=== PATIENT | female | born 1990 | race Caucasian/White ===

== ENCOUNTER 2021-02-18 23:32 | Emergency (ER) | payer OTHER ==
[~2021-02-18] VITALS: Ht 157.5 cm; Wt 50.0 kg
[2021-02-19 00:13] VITALS: BP 146/95
[2021-02-19] MEDS ORDERED: epiNEPHrine 1 mg/ml inj IM STA (00:20)
[2021-02-19] MEDS ORDERED: famotidine 20mg tablet PO ONE (00:25)
[2021-02-19] MEDS ORDERED: PANT20TA18 PO (02:01)
[2021-02-19] MEDS ORDERED: EPIN0.3P3 IM (02:02)
== END 2021-02-19 02:00 | disposition home or self-care (01) ==
LOC: ER 23:34
DX: T78.2XXA Anaphylactic shock, unspecified, initial encounter (principal); Z88.1 Allergy status to other antibiotic agents; Z79.899 Other long term (current) drug therapy; X58.XXXA Exposure to other specified factors, initial encounter; Y93.89 Activity, other specified; Y92.89 Other specified places as the place of occurrence of the external cause; Y99.8 Other external cause status
CPT/HCPCS: 96372; 99291; J0171